=== PATIENT | male | born 1975 | race African-American/Black ===

== ENCOUNTER 2017-06-01 19:13 | Inpatient (IN) | payer OTHER ==
[~2017-06-01] VITALS: Ht 172.7 cm; Wt 80.1 kg
[2017-06-01] MEDS ORDERED: HYDROcodone/APAP 5/325MG 1 TAB TABLET PO ONE (19:45)
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
[2017-06-01] MEDS ORDERED: IV NORMAL SALINE 1000ML BAG 1,000 ML IV ONE (20:30)
[2017-06-01 20:44] LABS: BASO % 1 % (0-3); EOS % 2 % (0-3); HEMATOCRIT 44.6 % (39.0-53.0); HEMOGLOBIN 14.9 g/dL (13.0-17.5); LYMPH # 1.7 x10^3/uL (1.0-4.8); LYMPH % 20 % (24-48); MEAN CORPUSCULAR HEMOGLOBIN 28 pg (25-35); MEAN CORPUSCULAR HGB CONC 33 g/dL (31-37); MEAN CORPUSCULAR VOLUME 85 fL (79-100); MONO % 9 % (0-9); NEUT % 69 % (31-73); PLATELET COUNT 103 x10^3/uL (140-400); RED BLOOD COUNT 5.28 x10^6/uL (4.30-5.70); RED CELL DISTRIBUTION WIDTH 13.6 % (11.5-14.5); WHITE BLOOD COUNT 8.6 x10^3/uL (4.0-11.0)
[2017-06-01] MEDS ORDERED: ONDANSETRON PF 4 MG/2 ML VIAL. IV PRN (20:45)
[2017-06-01 20:51] LABS: CALCIUM 9.2 mg/dL (8.5-10.1); GFR 99.2
[2017-06-01 22:24] VITALS: BP 115/76
[2017-06-01 22:37] VITALS: BP 106/71
[2017-06-02] VITALS (10 sets, daily range): BP systolic 102–126; BP diastolic 58–74
[2017-06-02] MEDS: fentaNYL PF VIAL 100 MCG/2 ML VIAL IV PRN ×2 (00:55→04:47)
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
[2017-06-02] MEDS ORDERED: MORPHINE SULFATE 4 MG/ML DISP.SYRIN. IV PRN (08:45)
[2017-06-02] MEDS ORDERED: KETOROLAC 15 MG/ML VIAL. IV PRN (08:45)
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
[2017-06-02 10:32] LABS: BASO % 1 % (0-3); EOS % 5 % (0-3); HEMOGLOBIN 13.9 g/dL (13.0-17.5); LYMPH # 2.4 x10^3/uL (1.0-4.8); LYMPH % 34 % (24-48); MEAN CORPUSCULAR HEMOGLOBIN 28 pg (25-35); MEAN CORPUSCULAR HGB CONC 32 g/dL (31-37); MEAN CORPUSCULAR VOLUME 86 fL (79-100); MONO % 8 % (0-9); NEUT % 54 % (31-73); PLATELET COUNT 93 x10^3/uL (140-400); RED BLOOD COUNT 5.01 x10^6/uL (4.30-5.70); RED CELL DISTRIBUTION WIDTH 13.6 % (11.5-14.5); WHITE BLOOD COUNT 7.1 x10^3/uL (4.0-11.0)
[2017-06-02] MEDS ORDERED: OXYC-323 PO (11:05)
[2017-06-02 13:40] LABS: PLT ESTIMATE DECREASED (ADEQUATE)
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
== END 2017-06-02 12:10 | disposition home or self-care (01) | DRG 965 ==
LOC: EEVIPCON 19:13 → ER 19:13 → 1 WEST ICU 20:20
PROVIDERS: ADMIT Internal Medicine; ATTEND Internal Medicine
DX: S06.6X9A Traumatic subarachnoid hemorrhage with loss of consciousness of unspecified duration, initial encounter (principal); S14.0XXA Concussion and edema of cervical spinal cord, initial encounter; D69.6 Thrombocytopenia, unspecified; F07.81 Postconcussional syndrome; S00.83XA Contusion of other part of head, initial encounter; Y08.89XA Assault by other specified means, initial encounter; Y93.89 Activity, other specified; Y92.89 Other specified places as the place of occurrence of the external cause; Y99.8 Other external cause status
CPT/HCPCS: 36415; 70450; 70486; 80048; 85025; 87641; 96360; 96361; J1885; J3010; J7030; 99285-25

== ENCOUNTER 2017-06-03 22:33 | Emergency (ER) | payer OTHER ==
[~2017-06-03] VITALS: Ht 172.7 cm; Wt 79.8 kg
[~2017-06-03 22:33] MED LIST: OXYC-323 PO
[2017-06-03 23:00] VITALS: BP 115/81
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
[2017-06-03] MEDS ORDERED: ONDANSETRON ODT 4 MG TAB.RAPDIS. PO ONE (23:55)
[2017-06-03] MEDS ORDERED: HYDROcodon/IBUPROFEN 7.5/200MG 1 TAB TABLET PO ONE (23:55)
[2017-06-04] MEDS ORDERED: ONDA4TAB10 SL (00:38)
== END 2017-06-04 00:40 | disposition home or self-care (01) ==
LOC: ER 22:33
DX: S06.0X9D Concussion with loss of consciousness of unspecified duration, subsequent encounter (principal); X58.XXXD Exposure to other specified factors, subsequent encounter
CPT/HCPCS: 99283; Q0162

== ENCOUNTER 2021-07-17 21:22 | Emergency (ER) | payer OTHER ==
[~2021-07-17] VITALS: Ht 175.3 cm; Wt 90.0 kg
[~2021-07-17 21:22] MED LIST changes: +ONDA4TAB10 SL; -OXYC-323 PO; +OXYC1TAB15 PO
--- NOTE | 2021-07-18 00:28 | RAD ---
EXAM: AP View of the chest DATE: 07/18/2021 12:09 AM INDICATION: Reason: cough / Spl. Instructions: / History: COMPARISON: No Prior FINDINGS: The heart is not enlarged. Mediastinal and hilar contours are normal. No focal parenchymal airspace opacity. No pleural effusion or pneumothorax. IMPRESSION: 1. No radiographic evidence for acute cardiopulmonary process. Electronically signed by: Kun Diallo MD (07/18/2021 12:26 AM) [facility]
[2021-07-18] MEDS: IBUPROFEN 200 MG TABLET. PO ONE (00:30)
[2021-07-18] MEDS: ACETAMINOPHEN 500 MG TABLET PO ONE (00:30)
[2021-07-18 00:38] LABS: INFLUENZA A PATIENT NEGATIVE (NEGATIVE); INFLUENZA B PATIENT NEGATIVE (NEGATIVE)
--- NOTE | 2021-07-18 00:56 | PHYS DOC ---
Past Medical History Past Medical History: No Pertinent History (ADRIANNA AMANDA CERAMIC MAKER DEMONSTRATOR) Past Surgical History: Other Additional Past Surgical Histo: L ankle, L hand (ADRIANNA AMANDA CERAMIC MAKER DEMONSTRATOR) Smoking Status: Never Smoker Alcohol Use: Rarely Drug Use: None (ADRIANNA AMANDA CERAMIC MAKER DEMONSTRATOR) General Adult EDM: Chief Complaint: FLU SYMPTOM HPI: HPI: Patient is a 45 year old male patient presenting to the ED today complaining of cough, body aches, chills, symptoms began yesterday. Patient states his has similar symptoms. Patient denies any chest pain. Denies any shortness of breath (ADRIANNA AMANDA CERAMIC MAKER DEMONSTRATOR) Review of Systems: Review of Systems: Constitutional: Reports body aches and chills Eyes: Denies change in visual acuity. [] HENT: Denies nasal congestion or sore throat. [] Respiratory: Reports cough, denies shortness of breath. [] Cardiovascular: Denies chest pain or edema. [] GI: Denies abdominal pain, nausea, vomiting, bloody stools or diarrhea. [] : Denies dysuria. [] Musculoskeletal: Denies back pain or joint pain. [] Integument: Denies rash. [] Neurologic: Denies headache, focal weakness or sensory changes. [] Psychiatric: Denies depression or anxiety. [] (ADRIANNA AMANDA CERAMIC MAKER DEMONSTRATOR) Heart Score: C/O Chest Pain: N/A Risk Factors: Risk Factors: DM, Current or recent (<one month) smoker, HTN, HLP, family history of CAD, obesity. Risk Scores: Score 0 - 3: 2.5% MACE over next 6 weeks - Discharge Home Score 4 - 6: 20.3% MACE over next 6 weeks - Admit for Clinical Observation Score 7 - 10: 72.7% MACE over next 6 weeks - Early Invasive Strategies (ADRIANNA AMANDA CERAMIC MAKER DEMONSTRATOR) Current Medications: Current Medications Medications (Trade) Dose Ordered Sig/Evelio Start Time Stop Time Status Last Admin Dose Admin Acetaminophen (Tylenol) 1,000 mg 1X ONCE 07/18/21 00:30 07/18/21 00:31 DC Ibuprofen (Motrin) 600 mg 1X ONCE 07/18/21 00:30 07/18/21 00:31 DC (ADRIANNA AMANDA CERAMIC MAKER DEMONSTRATOR) Allergies: Allergies: Allergies Coded Allergies Type Severity Reaction Last Updated Verified No Known Drug Allergies 03/10/14 No (ADRIANNA AMANDA CERAMIC MAKER DEMONSTRATOR) Physical Exam: PE: Constitutional: Well developed, well nourished, no acute distress, non-toxic appearance. [] HENT: Normocephalic, atraumatic, bilateral external ears normal, oropharynx moist, no oral exudates, nose normal. [] Eyes: PERRLA, EOMI, conjunctiva normal, no discharge. [] Neck: Normal range of motion, no tenderness, supple, no stridor. [] Cardiovascular:Heart rate regular rhythm, no murmur [] Lungs & Thorax: Bilateral breath sounds clear to auscultation [] Abdomen: Bowel sounds normal, soft, no tenderness, no masses, no pulsatile masses. [] Skin: Warm, dry, no erythema, no rash. [] Back: No tenderness, no CVA tenderness. [] Extremities: No tenderness, no cyanosis, no clubbing, ROM intact, no edema. [] Neurologic: Alert and oriented X 3, normal motor function, normal sensory function, no focal deficits noted. [] Psychologic: Affect normal, judgement normal, mood normal. [] (ADRIANNA AMANDA CERAMIC MAKER DEMONSTRATOR) Current Patient Data: Labs: Laboratory Tests Test 07/18/21 00:15 Influenza Type A Antigen Negative (NEGATIVE) Influenza Type B Antigen Negative (NEGATIVE) SARS-CoV-2 Antigen (Rapid) Positive (NEGATIVE) *A (ADRIANNA AMANDA Jermaine CERAMIC MAKER DEMONSTRATOR) EKG: EKG: [] (ADRIANNA AMANDA Jermaine CERAMIC MAKER DEMONSTRATOR) Radiology/Procedures: Radiology/Procedures: []PROCEDURE: CHEST AP ONLY EXAM: AP View of the chest DATE: 07/18/2021 12:09 AM INDICATION: Reason: cough / Spl. Instructions: / History: COMPARISON: No Prior FINDINGS: The heart is not enlarged. Mediastinal and hilar contours are normal. No focal parenchymal airspace opacity. No pleural effusion or pneumothorax. IMPRESSION: 1. No radiographic evidence for acute cardiopulmonary process. Electronically signed by: Kun Metz MD (07/18/2021 12:26 AM) [facility] DICTATED and SIGNED BY: KUN METZ MD DATE: 07/18/21 [id number] (KEVINESTUARDOEmilyADRIANNA Jermaine CERAMIC MAKER DEMONSTRATOR) Course & Med Decision Making: Course & Med Decision Making Pertinent Labs and Imaging studies reviewed. (See chart for details) This a 45-year-old male patient presented to the ED today complaining of body aches, chills, cough symptoms began yesterday. Patient's has similar symptoms. Patient is febrile in the ED. Positive for COVID-19. Chest x-ray negative. Negative influenza A and B. [address] Alonzo (ADRIANNA AMANDA APRN) Course & Med Decision Making This patient was initially seen by the nurse practitioner. Please see her note for further details of HPI and H&P. I assumed care of 0100. The patient is resting comfortably, room air oxygen saturation is 97%. He is nontoxic- appearing. I have discussed all of the findings, differential diagnosis and plan of care with the patient. His laboratory evaluation is unremarkable. His chest x-ray is unremarkable, he did not manifest no evidence of respiratory distress, pneumonia, pneumonitis or hypoxia. There is no indication further invasive exams, imaging, or admission. I explained home care instructions, supportive care instructions. He is prescribed Tessalon Perles for cough and Zofran for nausea. I sent this to his preferred pharmacy. He is to go home, self isolate. He admits to not being vaccinated against COVID-19, he has been around multiple family members who are also not vaccinated, I told him he needs to notify anyone has been around in the last 14 days, for contact tracing purposes, so that they may also quarantine or self isolate for active symptoms. Strict return precautions are given. (ROHAN ALONZO DO) Jimyon Disclaimer: Dragderek Disclaimer: This electronic medical record was generated, in whole or in part, using a voice recognition dictation system. (ADRIANNA AMANDA APRN) Departure Departure Impression: Primary Impression: Fever Qualified Codes: R50.9 - Fever, unspecified Additional Impression: Lab test positive for detection of COVID-19 virus Disposition: HOME / SELF CARE / HOMELESS Condition: STABLE Referrals: UNKNOWN PCP NAME (PCP) Additional Instructions: You have been tested for or diagnosed with COVID-19. It is an infection caused by a new type of coronavirus. COVID-19 will cause cold-like or mild flu symptoms in most. It can cause more severe symptoms like problems breathing in some. There is no treatment for COVID-19. The body will clear the infection over time. Self-care will help to ease discomfort. Steps to Take: Self-Care Rest as needed. Healthy habits may help you feel better. Steps include: Choose healthy foods including fruits and vegetables. Drink water throughout the day. Get plenty of sleep each night. If you smoke, try to quit. It may ease breathing. Avoid alcohol. Keep Others Healthy The virus can spread to others. Droplets are released every time you sneeze or cough. The droplets can get into the mouth, nose, or eyes of people near you and lead to infection. To lower the chances of spreading COVID-19 to others: Stay at home until your doctor has said it is safe to leave. If you tested positive this will mean staying isolated until both of the following are true: At least 7 days have passed since the start of illness. You are free of fever for at least 72 hours without the use of medicine. During this time: - Avoid public areas, events, or transportation. Do not return to work or school until your doctor has said it is safe to do so. - Call ahead if you need to go to a medical center. Let them know you may have COVID-19. It will help them guide you where to go. They may also ask you to wear a facemask when you come to the office. - If you call for emergency medical services, let them know you may have COVID- 19. While at home: - Try to avoid close contact with others. Stay about 6 feet away. - If possible, spend most of your time in a separate room from others. - Use a face mask if you will be in close contact with others such as sharing a room or vehicle. - Have someone wipe down common surfaces in the home. Use household solution design and analysis manager every day on areas like doorknobs, counters, or sinks. - Cough or sneeze into a tissue. Throw the tissue away right after use. If a tissue is not available, cough or sneeze into your elbow. - Wash your hands often. Wash them after sneezing or coughing. Use soap and water and wash for at least 20 seconds. Alcohol based hand roll cleaner can be used if soap and water is not available. - Do not prepare food for others. Avoid sharing personal items like forks, spoons, or toothbrushes. - Avoid close contact with pets while you are sick. There is no evidence of the virus passing to pets. This is a safety step until more is known about this virus. Isolation can be frustrating. Social interaction can help. Keep in touch with friends and family through phone and tech options. You can still interact with others in your home, just keep a safe distance of about 6 feet. Follow-up: Your doctors office will check in with you to see if there are any changes in your health. You may be asked to keep track of symptoms to share with them. They will also let you know when you are clear to be in public again. Problems to Look Out For: Contact your doctor if your recovery is not going as you expect. Get emergency care if you have problems such as: - Trouble breathing - Nonstop chest pain or pressure - Changes in awareness, confusion, or problems waking - Lips or face have bluish color - Worsening of symptoms If you think you have an emergency, call for emergency medical services right away. As taken from [facility] Benzonatate (BENZONATATE) 200 Mg Capsule 1 CAP PO PRN TID PRN for cough, #20 CAP 0 Refills Prov: ROHAN ALONZO DO 07/18/21 Ondansetron Hcl (ONDANSETRON HCL) 4 Mg Tablet 1 TAB PO PRN Q6HRS for vomiting, #20 TAB 1 Refill Prov: ROHAN ALONZO DO 07/18/21 ADRIANNA AMANDA CERAMIC MAKER DEMONSTRATOR Jul 18, 2021 00:56 ROHAN ALONZO DO Jul 18, 2021 01:48
[2021-07-18 01:09] LABS: BASO % 0 % (0-3); EOS % 1 % (0-3); LYMPH # 0.5 x10^3/uL (1.0-4.8); LYMPH % 7 % (24-48); MEAN CORPUSCULAR HEMOGLOBIN 29 pg (25-35); MEAN CORPUSCULAR HGB CONC 34 g/dL (31-37); MEAN CORPUSCULAR VOLUME 85 fL (79-100); MONO # 0.9 x10^3/uL (0.0-1.1); MONO % 13 % (0-9); NEUT # 5.3 x10^3/uL (1.8-7.7); NEUT % 79 % (31-73); PLATELET COUNT 86 x10^3/uL (140-400); RED BLOOD COUNT 4.81 x10^6/uL (4.30-5.70); RED CELL DISTRIBUTION WIDTH 13.7 % (11.5-14.5); WHITE BLOOD COUNT 6.7 x10^3/uL (4.0-11.0)
[2021-07-18 01:29] LABS: CALCIUM 8.7 mg/dL (8.5-10.1); CREATININE 1.1 mg/dL (0.7-1.3); GFR 87.2; POTASSIUM 4.2 mmol/L (3.5-5.1)
[2021-07-18 01:39] LABS: ALBUMIN 3.7 g/dL (3.4-5.0); ALBUMIN/GLOBULIN RATIO 1.1 (1.0-1.7); TOTAL BILIRUBIN 0.6 mg/dL (0.2-1.0); TOTAL PROTEIN 7.2 g/dL (6.4-8.2)
[2021-07-18] MEDS ORDERED: ONDA-84 PO (01:48)
[2021-07-18] MEDS ORDERED: BENZ200C47 PO (01:48)
[2021-07-18 02:17] LABS: PLT ESTIMATE DECREASED (ADEQUATE)
[2021-07-18 03:33] VITALS: BP 116/74
== END 2021-07-18 03:30 | disposition home or self-care (01) ==
LOC: ER 21:22
DX: U07.1 COVID-19 (principal)
CPT/HCPCS: 36415; 71045; 80053; 83605; 84145; 85025; 87040; 87426; 87804; 99285-25